=== PATIENT | male | born 1995 | race Caucasian/White ===

== ENCOUNTER 2019-09-04 16:53 | Emergency (ER) | payer MEDICAID ==
[~2019-09-04] VITALS: Ht 160 cm; Wt 81.0 kg
[2019-09-04] MEDS ORDERED: ONDANSETRON 4MG ODT PO ONE (17:45)
[2019-09-04] MEDS ORDERED: IBUPROFEN 600MG TABLET PO ONE (17:45)
[2019-09-04] MEDS ORDERED: SODIUM CHLORIDE 0.9% 1,000 ML IV ONE (18:25)
[2019-09-04] MEDS ORDERED: ONDANSETRON HCL 4MG/2ML INJ IV STA (18:25)
[2019-09-04 19:12] LABS: BASOPHILS % 0.6 % (0.0-2.0); EOSINOPHILS % 0.1 % (0.0-5.0); HEMATOCRIT. 41.9 % (42.0-52.0); HEMOGLOBIN. 14.3 g/dL (14.0-18.0); LYMPHOCYTES % 27.8 % (20.0-50.0); MEAN CORPUSCULAR HEMOGLOBIN 31.4 pg (28.0-32.0); MEAN CORPUSCULAR VOLUME 91.8 fL (80.0-94.0); MEAN PLATELET VOLUME 9.2 fl (7.4-10.4); MONOCYTES % 9.2 % (2.0-8.0); NEUTROPHILS % 62.3 % (40.0-76.0); PLATELET 204 x1000/uL (130-400); RED BLOOD CELL COUNT 4.56 mill/uL (4.7-6.1); RED CELL DISTRIBUTION WIDTH 12.7 % (11.6-14.6)
[2019-09-04 19:18] LABS: CHLORIDE 102 mEq/L (98-107)
[2019-09-04 22:48] VITALS: BP 130/70
== END 2019-09-04 22:49 | disposition home or self-care (01) ==
LOC: ER 16:53
DX: R10.13 Epigastric pain (principal); J02.9 Acute pharyngitis, unspecified; R11.10 Vomiting, unspecified; Z87.891 Personal history of nicotine dependence
CPT/HCPCS: 36415; 71045; 76705; 80053; 83690; 85025; 93005; 96361; 96374; 99285; J2405; J7030; Q0162

== ENCOUNTER 2020-01-14 07:49 | Emergency (ER) | payer MEDICAID ==
[~2020-01-14] VITALS: Ht 160 cm; Wt 82.0 kg
[2020-01-14] MEDS ORDERED: IBUPROFEN 600MG TABLET PO ONE (08:15)
[2020-01-14 08:17] VITALS: BP 145/83
== END 2020-01-14 10:21 | disposition home or self-care (01) ==
LOC: ER 07:49
DX: S82.55XA Nondisplaced fracture of medial malleolus of left tibia, initial encounter for closed fracture (principal); W01.0XXA Fall on same level from slipping, tripping and stumbling without subsequent striking against object, initial encounter; Y93.9 Activity, unspecified; Y92.9 Unspecified place or not applicable; Z98.890 Other specified postprocedural states
CPT/HCPCS: 29515; 73610; 99283